=== PATIENT | male | born 1945 | race Caucasian/White ===

== ENCOUNTER 2017-11-04 09:00 | Inpatient (IN) | payer OTHER, MEDICARE ==
[~2017-11-04] VITALS: Ht 180.3 cm; Wt 105.0 kg
[2017-11-06] MEDS ORDERED: SITA50 PO (08:13)
[2017-11-06] MEDS ORDERED: GLIP5TAB8 PO (08:13)
[2017-11-06] MEDS ORDERED: ASPI-516 CHEW (08:13)
[2017-11-06] MEDS ORDERED: AMLO10TA2 PO (08:13)
[2017-11-06] MEDS ORDERED: ATOR40TA16 PO (08:13)
[2017-11-06] MEDS ORDERED: LISI-515 PO (08:13)
[2017-11-06] MEDS ORDERED: METF1000 PO (11:20)
[2017-12-16] MEDS ORDERED: VANCOMYCIN 1 GM/200 ML INJ 200 ML IV ONE (10:24)
[2017-12-16] MEDS ORDERED: ceFAZolin 2 GM PREMIX 50 ML IV SCH (10:45)
[2017-12-16] MEDS ORDERED: CHLORHEXIDINE GLUCONATE 2 % 1 PACK (2 CLOTHS) TOPICAL PRN (10:45)
[2017-12-16] MEDS ORDERED: METOPROLOL TARTRATE 25 MG TAB PO PRN (10:45)
[2017-12-16] MEDS ORDERED: LACTATED RINGER'S 1000 ML IV PRN (10:45)
[2017-12-16] MEDS ORDERED: SODIUM CHLORID 0.9% 500 ML IV PRN (10:45)
[2017-12-16] MEDS ORDERED: POVIDONE IODINE 5% (ANTISEPSIS KIT) 4 APPLICATIONS EACH NARE PRN (10:45)
[2017-12-16] MEDS ORDERED: EXPAREL PERI-ARTICULAR INJECTION (TOTAL VOL. 60 ML) P-ARTICULR SCH ×2 (10:45)
[2017-12-16] MEDS ORDERED: CHLORHEXIDINE GLUCONATE 4% SOLN 120 ML BTL TOPICAL SCH (10:45)
[2017-12-16] MEDS ORDERED: SODIUM CHLORIDE 0.9% IV SCH (11:00)
[2017-12-16] MEDS ORDERED: TRANEXAMIC ACID IV SCH (11:00)
[2017-12-16] MEDS ORDERED: VANCOMYCIN 1 GM/200 ML PREMIX ON-CALL IV SCH (11:00)
[2017-12-16] MEDS ORDERED: ACETAMINOPHEN 1000 MG/100 ML 100 ML IV ONE (11:53)
[2017-12-16] MEDS ORDERED: KETAMINE HCL 50 MG/5 ML SYRINGE ONE (11:53)
[2017-12-16] MEDS ORDERED: LIDOCAINE HCL 1% PF 5 ML SYRINGE OTHER ONE (12:00)
[2017-12-16] MEDS ORDERED: LACTATED RINGER'S 1000 ML INJ 1,000 ML IV ONE (12:00)
[2017-12-16] MEDS ORDERED: ROCURONIUM INJ 50 MG/5 ML SYRINGE IV PUSH ONE (12:00)
[2017-12-16] MEDS ORDERED: ePHEDrine/NS 25 MG/5 ML SYRINGE IV ONE (12:00)
[2017-12-16] MEDS ORDERED: DEXAMETHASONE SOD PHOS 4 MG/ML VIAL IV ONE (12:00)
[2017-12-16] MEDS ORDERED: NEOSTIGMINE 5 MG/5 ML SYRINGE IV PUSH ONE (12:00)
[2017-12-16] MEDS ORDERED: LABETALOL HCL 100 MG/20 ML VIAL IV ONE (12:00)
[2017-12-16] MEDS ORDERED: ONDANSETRON HCL 4 MG/2 ML VIAL IV ONE (12:00)
[2017-12-16] MEDS ORDERED: ceFAZolin INJ 1,000 MG VIAL IV ONE (12:00)
[2017-12-16] MEDS ORDERED: PROPOFOL 200 MG/20 ML AMP IV ONE (12:00)
[2017-12-16] MEDS ORDERED: GLYCOPYRROLATE 1 MG/5 ML SYRINGE IV PUSH ONE (12:00)
[2017-12-16] MEDS ORDERED: GENTAMICIN SULFATE 80 MG/2 ML VIAL ONE (12:22)
[2017-12-16] MEDS ORDERED: BUPIVACAINE/EPINEPHRINE 0.5% PF 10 ML VIAL ONE (12:23)
[2017-12-16] MEDS ORDERED: diphenhydrAMINE HCL 50 MG/ML VIAL ONE (13:24)
--- NOTE | 2017-12-16 15:25 | PD.OP ---
cc: Carmine Hancock MD Operative Report Date of Surgery: Dec 16, 2017 Preoperative Diagnosis: Osteoarthritis left hip Postoperative Diagnosis: Same Procedure: Left total hip replacement arthroplasty, direct anterior exposure Anesthesia: General Surgeon: Carmine Hancock Sales Product Specialist(s): TYLER Rowland Operation and Findings: EBL: 400 cc INDICATION: This patient presents with significant hip pain related to osteoarthritis of the left hip. Despite extensive conservative care this patient continues to be painful and now presents for surgical treatment. NOTE: Britney Rowland PA-C was present for the entire surgical procedure as my first leveler. In my medical opinion her skill and care was necessary for the proper management of this patient. COMPONENTS: COMPANY: [employer] CUP: [place], 56, 100 series, gription surface LINER: Altrx 36, neutral STEM: [place]ail, size 18, high offset, hydroxyapatite-coated HEAD: Metal, 36 mm, 1.5 neck length, /14 taper PROCEDURE: This patient was brought to the operating room and anesthetized in the supine position and positioned on the fracture table with both legs held extended. The left hip and leg was scrubbed with alcohol followed by Hibiclens followed by ChloraPrep and draped sterilely. Antibiotics were given within routine time window and a timeout was done. A 4 inch incision was made starting 2 cm distal and 2 cm lateral to the anterior superior iliac spine. The fascia nessa was opened longitudinally. The interval between the fascia nessa and the rectus was opened down to the capsule of the hip joint. Retractors were positioned allowing good visualization of the capsule. This was opened longitudinally and flaps were created. Stay sutures were utilized. Exposure was excellent. The neck was cut at the proper location using fluoroscopy as a guide. The head was removed. Deep retractors were positioned allowing good visualization of the acetabulum. Acetabulum was deepened down to the floor starting with a proper size reamer and reaming up to 55mm. A trial was utilized. Fluoroscopy was used to check position and confirmed satisfactory alignment. The rim was reamed with a 56 mm reamer and the final cup was positioned in approximately 20 of anteversion and 40-45 of abduction. Position was satisfactory. A single hole eliminator was positioned followed by the final liner. The lifting hook was utilized. The leg was dropped to the floor, maximally externally rotated and brought across the midline. Retractors were positioned. A box osteotome was utilized followed by progressive broaching to the proper stem size. Trial reduction showed excellent alignment and fit. With 60 of external rotation the leg was dropped to the floor without evidence of anterior subluxation. The wound was irrigated. The final stem was inserted and was found to be very stable. The final reduction using the final head. Stability was as previously noted. Intraoperative x-rays were taken. The wound was irrigated copiously. Hemostasis was controlled. Local anesthesia was utilized. The capsule was repaired with #2 Tycron sutures. The fascia nessa was repaired with running 0 PDS on a loop. Subcutaneous tissue was approximated with 2-0 Vicryl and skin with running intradermal 3-0 Vicryl followed by Steri-Strips. A sterile dressing was applied. The patient was awakened and taken to the recovery room in satisfactory condition. FINDINGS: There was severe osteoarthritis of the left hip. There were circumferential osteophytes removed with an osteotome and Diego. The final solution was excellent. There was no complication that was appreciated Carmine Hancock MD Dec 16, 2017 15:25
[2017-12-16] MEDS ORDERED: MORPHINE SULFATE 8 MG/ML INJ IM PRN (15:30)
[2017-12-16] MEDS ORDERED: diphenhydrAMINE HCL 25 MG CAP PO PRN (15:30)
[2017-12-16] MEDS ORDERED: ACETAMINOPHEN/HYDROcodone 325 MG/10 MG TAB PO PRN (15:30)
[2017-12-16] MEDS ORDERED: HYDR-3583 PO (15:30)
[2017-12-16] MEDS ORDERED: ASPI325T33 PO (15:30)
[2017-12-16] MEDS ORDERED: ASPIRIN 81 MG CHEW TAB CHEW ONE (15:30)
[2017-12-16] MEDS ORDERED: Post-op Orders (for Pharmacy) XX ONE (15:30)
--- NOTE | 2017-12-16 15:31 | HHI.FF ---
Face to Face Verification Diagnosis: (1) Primary osteoarthritis of left hip Physical Therapy Gait training Hip: Total hip, Protocol: Left Left LE Weight Bearing: WB as tolerated Occupational Therapy Right UE Weight Bearing: WB as tolerated Nursing RN: 3 days/week x 2 weeks Nursing: Other Dressing Changes: Do not change dressing I have seen patient Ameya Zavaleta on 12/16/17. My clinical findings support the need for the requested home health care services because: Ltd mobility - disease progression High risk of falls I certify that my clinical findings support that this patient is homebound because: Unsteady gait/balance Carmine Hancock MD Dec 16, 2017 15:31
[2017-12-16] MEDS ORDERED: ONDANSETRON ODT 4 MG TAB PO PRN (15:45)
[2017-12-16] MEDS ORDERED: DO NOT ADM ANY ANTICOAGULANT DRUGS PRN (15:51)
[2017-12-16] MEDS ORDERED: *morphine SULFATE 4 MG/ML PERIprocedure ONLY ONE (16:01)
[2017-12-16] MEDS ORDERED: MIDAZOLAM HCL 2 MG/2 ML VIAL ONE (16:03)
[2017-12-16] MEDS: LACTATED RINGER'S 1000 ML INJ 1,000 ML IV SCH (16:10)
[2017-12-16] MEDS: metFORMIN HCL 500 MG TAB PO SCH (17:46)
[2017-12-16] MEDS: ACETAMINOPHEN/HYDROcodone 325 MG/10 MG TAB PO PRN (17:46)
[2017-12-16 17:53] VITALS: BP 171/77; PULSE 80; RESP 18; TEMP 98.2; O2SAT 95
[2017-12-16 20:51] VITALS: BP 163/74; PULSE 79; RESP 17; TEMP 97.8; O2SAT 94
[2017-12-16] MEDS: MAGNESIUM HYDROXIDE SUSP 30 ML CUP PO SCH (20:58)
[2017-12-16] MEDS ORDERED: ATORVASTATIN 40 MG TAB PO SCH (21:00)
[2017-12-16] MEDS ORDERED: SENNOSIDES 8.6 MG TAB PO SCH (21:00)
--- NOTE | 2017-12-16 21:15 | RADRPT ---
EXAM DATE: 12/16/2017 9:12 PM EDT AGE/SEX: 72 years / Male INDICATIONS: Open reduction internal fixation of the left hip. CLINICAL DATA: This is the patient's initial encounter. Patient reports that signs and symptoms have been present for 1 day and indicates a pain score of Nonresponsive. MEDICAL/SURGICAL HISTORY: Non-responsive. Non-responsive. COMPARISON: No prior exams available for comparison. FINDINGS: The patient is post left hip arthroplasty. The orthopedic hardware is in excellent position. Alignmen t is good. CONCLUSION: The orthopedic hardware is in excellent position. Electronically signed by: Andrey Conner MD 12/16/2017 9:13 PM EDT
[2017-12-17 00:45] VITALS: BP 135/59; PULSE 80; RESP 17; TEMP 97.7; O2SAT 94
[2017-12-17 03:53] VITALS: BP 154/71; PULSE 80; RESP 18; TEMP 98.3; O2SAT 95
[2017-12-17] MEDS: ACETAMINOPHEN/HYDROcodone 325 MG/10 MG TAB PO PRN (03:54)
[2017-12-17] MEDS ORDERED: ASPIRIN EC 81 MG TABEC PO SCH (04:00)
[2017-12-17] MEDS: LACTATED RINGER'S 1000 ML INJ 1,000 ML IV SCH (04:16)
[2017-12-17 05:22] LABS: HEMATOCRIT 39.2 % (39.0-51.0); HEMOGLOBIN 13.1 GM/DL (13.0-17.0)
[2017-12-17 08:00] VITALS: BP 123/58; PULSE 70; RESP 18; TEMP 98.2; O2SAT 96
[2017-12-17] MEDS: MAGNESIUM HYDROXIDE SUSP 30 ML CUP PO SCH (09:00)
[2017-12-17] MEDS ORDERED: glipiZIDE 5 MG TAB PO SCH (09:00)
[2017-12-17] MEDS ORDERED: LISINOPRIL 20 MG TAB PO SCH (09:00)
[2017-12-17] MEDS: metFORMIN HCL 500 MG TAB PO SCH (09:17)
[2017-12-17 12:00] VITALS: BP 130/61; PULSE 64; RESP 18; TEMP 97.8; O2SAT 96
--- NOTE | 2017-12-17 13:09 | HHI.DCPOC ---
Discharge Care Plan Diagnosis: (1) Primary osteoarthritis of left hip Your Health Problems Are: Difficulty with ADL Incision/Drains Swelling Goals to Promote Your Health * To prevent worsening of your condition and complications * To maintain your health at the optimal level Directions to Meet Your Goals Take your medications as prescribed Follow your dietary instruction Follow activity as directed Keep your appointments as scheduled Take your immunizations and boosters as scheduled If your symptoms worsen call your PCP, if no PCP go to Urgent Care Center or Emergency Room Smoking is Dangerous to Your Health. Avoid second hand smoke Call the 24-hour hour crisis hotline for domestic abuse at Alissa Lomas Dec 17, 2017 13:09
[2017-12-17] MEDS ORDERED: WALKER WHEELS/F1 MIS (13:10)
--- NOTE | 2017-12-17 13:10 | HHI.DS ---
Discharge Summary Admission Date Dec 16, 2017 at 09:45 Discharge Date: Dec 17, 2017 Admitting Diagnosis see below Diagnosis: (1) Primary osteoarthritis of left hip Diagnosis: Principal ICD Codes: M16.12 - Unilateral primary osteoarthritis, left hip Procedures Left total hip arthroplasty, direct anterior approach Brief History This is a 72 year old male patient CBC/BMP: 12/17/17 0505 Significant Findings Laboratory Tests Test 12/17/17 05:05 Hospital Course [place] 10mg. ASA 81mg. pod#1 HHC. Pt Condition on Discharge: Stable Discharge Disposition: Disch w/ Home Health Serv Discharge Instructions Diet Instructions: Diabetic Diet Activities You Can Perform: Weight Bearing as Sujit New Medications: Aspirin DR (Aspirin EC) 325 Mg Tabdr 81 MG PO BID for Prevent Blood Clot, #60 TAB Hydrocodone/Acetaminophen (Hydrocodone-Acetamin 10-325 mg) 10 Mg-325 Mg Tablet 1 TAB PO Q4H PRN for Pain, #42 TAB Continued Medications: Amlodipine (Amlodipine) 10 Mg Tab 10 MG PO DAILY for Blood Pressure Management, #30 TAB 0 Refills Aspirin (Aspirin) 81 Mg Chew 81 MG CHEW DAILY, TAB 0 Refills Atorvastatin (Atorvastatin) 40 Mg Tab 40 MG PO HS for Cholesterol Management, #30 TAB 0 Refills Glipizide (Glipizide) 5 Mg Tab 5 MG PO DAILY for Blood Sugar Management, #30 TAB 0 Refills Take 30 minutes before a meal Lisinopril (Lisinopril) 20 Mg Tab 20 MG PO DAILY, #30 TAB 0 Refills Metformin (Metformin) 1,000 Mg Tab 1000 MG PO BIDPC for Blood Sugar Management, #60 TAB 0 Refills Do not restart until 11/08 Sitagliptin (Januvia) 50 Mg Tab 50 MG PO DAILY for Blood Sugar Management, #30 TAB 0 Refills Alissa Lomas Dec 17, 2017 13:10
[2017-12-17] MEDS ORDERED: COMMODE 3-IN-11 MIS (13:11)
--- NOTE | 2017-12-17 13:14 | PD.ORT.PN ---
Subjective Subjective Remarks He notes left hip and anterior thigh pain but no radiating leg pain past the knee. No concerns over CP, SOB or abd pain. No lightheadedness. Appetite is ok. Urinating well. Prefers to go home today. Objective Vitals Vital Signs Date Time Temp Pulse Resp B/P (MAP) Pulse Ox O2 Delivery O2 Flow Rate FiO2 12/17/17 08:00 98.2 70 18 123/58 (79) 96 12/17/17 07:34 Room Air 12/17/17 03:53 98.3 80 18 154/71 (98) 95 12/17/17 00:45 97.7 80 17 135/59 (84) 94 12/16/17 20:51 97.8 79 17 163/74 (103) 94 12/16/17 20:45 Room Air 12/16/17 17:53 98.2 80 18 171/77 (108) 95 12/16/17 17:15 73 12 147/66 (93) 95 Nasal Cannula 2 12/16/17 16:45 98.4 72 12 139/58 (85) Nasal Cannula 3 12/16/17 16:30 73 15 148/67 (94) 96 Nasal Cannula 3 12/16/17 16:15 74 14 144/62 (89) 95 Nasal Cannula 3 12/16/17 16:00 71 11 142/67 (92) 95 Nasal Cannula 3 12/16/17 15:51 98.5 77 12 141/67 (91) 93 Nasal Cannula 3 I/O 12/16/17 12/16/17 12/16/17 12/17/17 12/17/17 12/17/17 07:00 15:00 23:00 07:00 15:00 23:00 Intake Total 1920.53 ml 730 ml 0 ml Output Total 600 ml 1500 ml Balance 1320.53 ml -770 ml 0 ml Intake IV Total 320.53 ml 730 ml 0 ml Other 1600 ml Output Urine Total 200 ml 1500 ml Estimated Blood Loss 400 ml Result Diagram: 12/17/17 0505 Procedures Left total hip arthroplasty, direct anterior approach Objective Remarks Sitting up in chair With NAD VSS LLE Hip dressing c/d/i, mild SS drainage, mild swelling, no erythema +motor at, +sens, +nvi neg homans Assessment & Plan Ortho Post Op Day #: 1 Problem List: (1) Primary osteoarthritis of left hip ICD Codes: M16.12 - Unilateral primary osteoarthritis, left hip Assessment and Plan pod#1 s/p L SHOSHANA, anterior Doing well. Pain controlled. Ortho stable. Labs stable. Vitals stable. Ok for d/c home w hhc today. PT - WBAT Left LE. Anterior shoshana precautions. Hold dressing changes unless saturated. ASA 81mg bid for dvt prophylaxis. Ice to hip BID for 7 days postop. F/U in 2 weeks as scheduled. DME written. Alissa Lomas Dec 17, 2017 13:14
[2017-12-17 16:00] VITALS: BP 119/67; PULSE 80; RESP 18; TEMP 97.2; O2SAT 97
== END 2017-12-17 15:51 | disposition home health service (06) | DRG 470 ==
LOC: HSDI 12-16 09:45 → N06A 12-16 17:38
PROVIDERS: ADMIT Orthopaedic Surgery Orthopaedic Surgery of the Spine; ATTEND Orthopaedic Surgery Orthopaedic Surgery of the Spine
PROC: 0SRB02A Replacement of Left Hip Joint with Metal on Polyethylene Synthetic Substitute, Uncemented, Open Approach (ICD-10-PCS; principal; 2017-12-16 12:45)
DX: M16.12 Unilateral primary osteoarthritis, left hip (principal); E11.51 Type 2 diabetes mellitus with diabetic peripheral angiopathy without gangrene; E66.9 Obesity, unspecified; I25.10 Atherosclerotic heart disease of native coronary artery without angina pectoris; I10 Essential (primary) hypertension; E78.5 Hyperlipidemia, unspecified; Z79.82 Long term (current) use of aspirin; Z79.84 Long term (current) use of oral hypoglycemic drugs; Z68.32 Body mass index [BMI] 32.0-32.9, adult; Z72.0 Tobacco use
CPT/HCPCS: 73502; 76000; 85014; 85018; 86850; 86900; 86901; 86920; 94150; C1776; J0131; J0690; J1100; J1200; J1580; J2250; J2270; J2405; J2710; J3010; J3370; J7120

== ENCOUNTER 2017-11-06 07:26 | Day surgery (SDC) | payer OTHER ==
[~2017-11-06] VITALS: Ht 180.3 cm; Wt 105.6 kg
[~2017-11-06 07:26] MED LIST: ASPI325T PO; ATOR20TA42 PO; GLUCTAB PO; LISI-363 PO; PERC5TAB12 PO; TAB-TAB PO; TAMS0.4C67 PO; TOPR50TA PO; VITA10002 PO; VITA20002 PO
[2017-11-06] MEDS ORDERED: IOHEXOL 350 MG/ML 100 ML BTL (for Cath Lab) OTHER ONE (07:27)
[2017-11-06] MEDS ORDERED: NS 1000P @30 MLS/HR (KVO) IV SCH (07:45)
[2017-11-06] MEDS ORDERED: ASPI-516 CHEW (08:13)
[2017-11-06] MEDS ORDERED: GLIP5TAB8 PO (08:13)
[2017-11-06] MEDS ORDERED: ATOR40TA16 PO (08:13)
[2017-11-06] MEDS ORDERED: SITA50 PO (08:13)
[2017-11-06] MEDS ORDERED: AMLO10TA2 PO (08:13)
[2017-11-06] MEDS ORDERED: METF1000 PO ×2 (08:13→11:20)
[2017-11-06] MEDS ORDERED: LISI-515 PO (08:13)
[2017-11-06 08:14] VITALS: BP 155/76; PULSE 66; RESP 18; O2SAT 98
[2017-11-06 08:20] LABS: AUTOMATED NEUTROPHIL # 6.3 TH/MM3 (1.8-7.7); BASOPHIL # 0.1 TH/MM3 (0-0.2); BASOPHIL % 0.7 % (0.0-2.0); EOSINOPHIL # 0.2 TH/MM3 (0-0.4); EOSINOPHIL % 1.9 % (0.0-4.0); HEMATOCRIT 44.4 % (39.0-51.0); HEMOGLOBIN 15.1 GM/DL (13.0-17.0); LYMPH % 17.8 % (9.0-44.0); LYMPHOCYTE # 1.6 TH/MM3 (1.0-4.8); MEAN CELL VOLUME 92.6 FL (80.0-100.0); MEAN CORPUSCULAR HEMOGLOBIN 31.4 PG (27.0-34.0); MEAN CORPUSCULAR HGB CONC 33.9 % (32.0-36.0); MEAN PLATELET VOLUME 8.2 FL (7.0-11.0); MONO % 10.2 % (0.0-8.0); MONOCYTE # 0.9 TH/MM3 (0-0.9); NEUT % 69.4 % (16.0-70.0); PLATELET COUNT 277 TH/MM3 (150-450); RED BLOOD COUNT 4.79 MIL/MM3 (4.50-5.90); WHITE BLOOD COUNT 9.1 TH/MM3 (4.0-11.0)
[2017-11-06 08:31] LABS: PROTHROMBIN TIME - PATIENT 10.5 SEC (9.8-11.6)
[2017-11-06 08:39] LABS: CALCIUM 9.3 MG/DL (8.5-10.1); CREATININE 0.83 MG/DL (0.60-1.30)
[2017-11-06] MEDS ORDERED: HEPARIN-NS/PF FLUSH BAG 2,000 ML IV FLUSH ONE (10:18)
[2017-11-06] MEDS ORDERED: MIDAZOLAM HCL 2 MG/2 ML VIAL ONE (10:21)
--- NOTE | 2017-11-06 11:16 | CATHPROC ---
[facility] HIS Report Study Information Study Number Admission Scheduled Start Study Start [id number] Nov 06 2017 7:26AM 11/06/2017 Nov 06 2017 10:16AM [place] Service Cardiac Catheterization Admit Source Facility Department Other [facility] - Supervisor Propellant Charge Loading Physician and Clinical Staff Initial Devon Garcia Curtain Roller Assembler Swapnil Alfaro RN Curtain Roller Assembler Kristen Curiel RN Recorder Charity Boyle,RT(R) Scrub Jackson Merritt RCIS(BS) Procedures Performed Procedure Location (Site) Vessel Name Coronary Angiograms LCA Left Coronary Coronary Angiograms RCA Right Coronary Coronary Angiograms LOPEZ-LAD Left Coronary Coronary Angiograms Gft. Stump 1 SVG Graft Coronary Angiograms SVG-RAMUS Left Coronary L Heart Cath Wire insertion Fem Art (left) Femoral Art Wire insertion Fem Art (right) Femoral Art Equipment Time Podiatry Assistant Description Size Mfg Part Number Used/Scraped TRANSDUCER, TRUWAVE [id number] 10:18 GUZMAN TAM * Used W/STOCKCOCK *[id number] INTRODUCER SET, 10:18 [employer] FR 5 [id number] *[id number] Used MICROPUNCTURE STIFF WIRE, GUIDE AMPLATZ STIFF [id number] 10:42 COOK/PACER 3MMJ Used 180CM *[id number] *[id number] *[id number] 10:18 [employer] INDUSTRIES PACK, CCL CUSTOM * Used *[id number] 10:18 [employer] MEDICAL WIRE, 3MMJ .035 180CM 180CM Used *[id number] 10:18 NAMIC MANIFOLD, 4 PORT * Used *[id number] 10:18 NYCOMED OMNIPAQUE, 350 MG, 150ML 150ML [id number] Used [id number] 10:18 MCCARTY MEDICAL BLANKET,WARM AIR CCL * Used *[id number] 10:18 TERUMO MEDICAL SHEATH, FR5 TERUMO (10CM) FR 5 Used *[id number] Equipment Model, Serial, Lot Number and Expiration Data Description Model Number Serial Number Lot Number Expiration Date WIRE, GUIDE AMPLATZ STIFF [id number] 06-18-2022 180CM History: Current Medications Medication Dosage/Unit Route Frequency Last Date/Time Taken LISINOPRIL Statins (any) ASA Glucophage History: Allergies Allergy Reaction No Known Allergies History: Risk Factors Family History of Hypertension Dyslipidemia Previous MA Previous Heart Failure Premature CAD Yes Yes No No No Prior Valve Prior PCI Prior CABG Prior CABGDate Surgery No No Yes 06/23/2001 Cerebrovascular Peripheral Artery Chronic Lung On Dialysis Diabetes Diabetes Therapy Disease Disease Disease No No Yes No Yes Oral History: Stress Tests Stress or Imaging Studies Performed Yes Standard Exercise Stress Test No Stress Echo No Stress Test SPECT Stress Test SPECT Result Stress Test SPECT Ischemia Risk/Extent Yes Positive Intermediate Stress Test CMR No Cardiac CTA Coronary Calcium Score No No History: Other Current Smoker Packs a Day Years Used Pack Years Yes 1 60 60 Labs Hgb (g/dl) Hct (%) WBC (l/cumm) Platelets (thousands) 11.60-17.00 35.00-51.00 4.00-11.00 150.00-450.00 15.1 44.4 9.1 277 Glucose (mg/dl) BUN (mg/dl) Creatinine (mg/dl) BUN:Creatinine (1:x) 74.00-106.00 7.00-18.00 0.50-1.30 10.00-20.00 182 12 0.8 15 Na (meq/l) K (meq/l) 136.00-145.00 3.50-5.10 140 4 INR (PTT:PT) 0.90-1.10 1 CPK-MB (ng/ML) 0.50-3.60 Not Drawn Medication Medication Total Dose (Bolus/Oral) Medication Total Dosage/Unit 1% XYLOCAINE 20 mL FENTANYL 25 mcg VERSED 0.5 mg Medications (Bolus/Oral) Medication Time Given Dosage/Unit Administered By Reason VERSED 11/06/2017 10:33:37 AM 0.5 mg Kristen Curiel 0.5 mg VERSED given in lab by Kristen Curiel RN in Left Wrist via Peripheral IV. Ordered by Devon Vaughn FENTANYL 11/06/2017 10:34:46 AM 25 mcg Kristen Curiel 25 mcg FENTANYL given in lab by Kristen Curiel RN in Left Wrist via Peripheral IV. Ordered by Devon Flores 1% XYLOCAINE 11/06/2017 10:36:44 AM 20 mL Devon Vaughn 20 mL 1% XYLOCAINE given in lab by Devon Vaughn in Left Groin via Subcutaneous. Medication (Drip) Medication Time Given Dosage/Unit Concentration/Unit Diluent (ml) Solution IV Solutions 11/06/2017 10:16:35 AM 50 mL (IV) NaCl .9 IV Solutions given in lab by Swapnil Alfaro RN in Left Wrist via Peripheral IV. Pump/Drip Flow using N aCl .9. Initial Case Assessment Cardiovascular HR Rhythm NIBP Chest Pain 67 SR 154/81 0 Circulatory - Right Pulses Dorsalis Pedis Femoral 1 1 Scale (0,1,2,3,4,d) Circulatory - Left Pulses Dorsalis Pedis Femoral 1 1 Scale (0,1,2,3,4,d) Neurological State Oriented to time-place- Alert Moves all extremities person Respiration - General Respiration Rate SpO2 (%) (B/min) 17 98 Chronological Log Time Study Chronological Log 10:13:09 Patient arrived via Bed. 10:16:13 Patient Name, D.O.B, / Armband Verified By R.N. 10:16:13 Consent signed by the physician and the patient and verified by the Supervisor Propellant Charge Loading staff. 10:16:14 Pre-op and post- op instructions given; patient acknowledges understanding of instruction s. 10:16:21 Verbal Stimulation=2 Physical Stimulation=2 Airway=2 Respiration=2 TOTAL=8. (0=absent, 1= limited, 2=present) 10:16:25 Presedation assessment performed by Supervisor Propellant Charge Loading RN. 10:16:27 Patient has been NPO for More than 6Hrs. 10:16:29 Immediate Presedation assesment performed by physician. 10:16:30 Skin Breakdown- none per pt 10:16:31 Patient Warmer Placed on the Table. 10:16:33 Stacy Prominences Protected 10:16:34 A # 20 IV was noted in the Wrist (right). Grade = 0 10:16:35 IV Solutions given in lab by Swapnil Alfaro RN in Left Wrist via Peripheral IV. Pump/Drip Fl ow using NaCl .9. 10:16:36 History and physical on the chart or being dictated. Assessment: Initial Case, HR=67 BPM, Rhythm=SR, FYKO=950/81 mmhg, Chest Pain=0 Right Pulses: Flaquito Ped=1, Femoral=1 10:16:37 Left Pulses: Flaquito Ped=1, Femoral=1 Neurological: State=Alert, Ox3, CONKLIN Respiration: Resp=17 B/min, SpO2=98 % Vitals capture started with the following parameters, Patient=Adult, Interval=5 min, Initial Pr zbrflw=725 mmHg, 10:17:47 Deflation Rate=5 mmHg, Cuff placed on Right Arm 10:19:06 HR=67 bpm, WNKL=378/89 mmhg, SpO2=97.0 %, Resp=17 B/min 10:23:35 HR=67 bpm, EFHG=994/81 mmhg, SpO2=99.0 %, Resp=19 B/min 10:24:00 Reference ECG taken 10:25:15 Bilateral groins prepped with 2% chlorhexidine, and draped after a 3 minute waiting time. 10:27:52 MD arrived. 10:28:36 HR=68 bpm, FPXM=496/80 mmhg, SpO2=99.0 %, Resp=12 B/min 10:31:09 Pressure channel 1 zeroed. Time Out. Correct patient, correct procedure, correct physician, power injector not loaded with contrast with surgical 10:33:23 team present. Time Out Concurred by MD and individual staff in procedure. 10:33:31 HR=66 bpm, OVTT=734/84 mmhg, SpO2=97.0 %, Resp=18 B/min 10:33:37 0.5 mg VERSED given in lab by Kristen Curiel RN in Left Wrist via Peripheral IV. Ordered b y Devon Vaughn 10:34:25 Case Start 10:34:46 25 mcg FENTANYL given in lab by Kristen Curiel RN in Left Wrist via Peripheral IV. Ordered by Devon Vaughn 10:36:44 20 mL 1% XYLOCAINE given in lab by Devon Vaughn in Left Groin via Subcutaneous. 10:38:11 Access site was Left Femoral Artery with micropunture. 10:38:20 A WIRE, 3MMJ .035 180CM 180CM was inserted via Fem Art (right). 10:38:34 HR=71 bpm, OQZJ=378/83 mmhg, SpO2=95.0 %, Resp=17 B/min 10:38:37 A SHEATH, FR5 TERUMO (10CM) FR 5 was advanced into the Fem Art (left) using the Mayutafaraou s technique. 10:40:00 Wire removed 10:41:45 A WIRE, GUIDE AMPLATZ STIFF 180CM 3MMJ was inserted via Fem Art (left). 10:43:31 HR=73 bpm, HFDW=290/92 mmhg, SpO2=96.0 %, Resp=17 B/min 10:43:46 Wire removed 10:44:40 An injection in the Fem Art (left) was made through the SHEATH, FR5 TERUMO (10CM) FR 5. 10:45:53 A WIRE, 3MMJ .035 180CM 180CM was inserted via Fem Art (left). A JR 4.0 INFINITI CATHETER FR 5 was advanced over a wire. OMNIPAQUE, 350 MG, 150ML 150ML was us ed for 10:46:01 injections. Recorded Pressure: LV, HR=68, Condition=Condition 1 10:46:14 (Left Ventricle) LV 159/3/15 10:46:30 The RCA was injected and visualized at various angles. OMNIPAQUE, 350 MG, 150ML 150ML used . Recorded Pressure: LV, Ao, HR=68, Condition=Condition 1 10:46:30 (Left Ventricle) LV 158/2/17, (Aorta) Ao 155/63/99 Recorded Pressure: Ao, HR=70, Condition=Condition 1 10:47:52 (Aorta) Ao 162/73/108 10:48:01 The SVG-RAMUS was injected and visualized at various angles. OMNIPAQUE, 350 MG, 150ML 150M L used. 10:48:34 HR=72 bpm, XGCL=541/84 mmhg, SpO2=95.0 %, Resp=15 B/min 10:48:47 The Gft. Stump 1 was injected and visualized at various angles. OMNIPAQUE, 350 MG, 150ML 1 50ML used. SVG-OM 10:49:58 A WIRE, 3MMJ .035 180CM 180CM was inserted via Fem Art (left). 10:51:00 Wire removed 10:51:43 The LOPEZ-LAD was injected and visualized at various angles. OMNIPAQUE, 350 MG, 150ML 150ML used. After removing the current catheter a JL 4.0 INFINITI CATHETER FR 5 was advanced over a WIRE, 3MMJ .035 180CM 10:52:49 180CM. 10:53:35 HR=73 bpm, FJHD=129/79 mmhg, SpO2=94.0 %, Resp=20 B/min 10:54:25 The LCA was injected and visualized at various angles. OMNIPAQUE, 350 MG, 150ML 150ML use d. 10:57:10 Catheter was removed 10:57:37 Case End 10:58:34 HR=68 bpm, GZTC=748/89 mmhg, SpO2=97.0 %, Resp=20 B/min 11:01:48 Sheath removed; pressure applied to access site. 11:01:54 No case complications noted. 11::57 Cine recording checked. 11::58 Holding Area notified 11:02:06 Bedside Report will be given. 11:02:09 A Left Heart Cath was performed. 11:03:37 HR=77 bpm, WIIB=035/90 mmhg, SpO2=96.0 %, Resp=26 B/min 11:08:42 HR=66 bpm, ONDH=358/82 mmhg, SpO2=96.0 %, Resp=13 B/min 11:12:24 Vitals capture stopped. 11:15:13 Sterile dressing applied to site 11:15:16 Patient moved to white hospitaler End Study - Contrast Media Used In Study Contrast Total Opened (mL) Total Used (mL) Total Wasted (mL) Omnipaque 60 60 0 End Study - Maximum Contrast Load Max Contrast Load (mL) 659.9 End Study - Radiation Exposure Fluoro Time (minutes) 4.3 End Study - Sheaths Sheaths Pulled By Sheath Hold Time (min) Jackson Merritt 20 End Study - Patient Disposition Complications Transferred To Interventional Outcome No Outpatient Bed No attempt made
--- NOTE | 2017-11-06 11:58 | MA ---
cc: Devon Vaughn DO DATE: 11/06/2017 PROCEDURES: Left heart catheterization, coronary angiogram, bypass angiogram, moderate sedation, 24 minutes. PREOPERATIVE DIAGNOSES: Preoperative cardiovascular evaluation, abnormal stress test. POSTOPERATIVE DIAGNOSIS: Severe [place] coronary artery disease, coronary artery bypass grafting x 5 (2 out of 5 patent). MEDICATIONS: Versed 0.5 mg, fentanyl 25 mcg. CONTRAST: 60 mL. FLUOROSCOPY TIME: 4.3 minutes. ANESTHESIA: Moderate sedation, 24 minutes. FRAILTY SCORE: 3. ESTIMATED BLOOD LOSS: 10 mL. PROCEDURAL SUMMARY: Ameya Zavaleta is a pleasant 72-year-old male who sees my partner, Dr. Glasgow in the office and underwent stress testing for possible preoperative evaluation for possible hip surgery. As this was abnormal, he was recommended consideration of cardiac catheterization. The risks, benefits and alternatives were explained to him and he consented as such. He was brought to the lab and prepped in the usual sterile fashion. The left femoral artery was accessed using a modified Seldinger technique and placement of a 5-Danish sheath. This was easily aspirated and flushed. A JR4 was advanced over a J-wire to the ascending aorta and across the aortic valve for measurement of left ventricular pressure. This was pulled back across the aortic valve showing no significant gradient of aortic stenosis. JR4 was used for selective angiography of the [place] RCA, saphenous vein graft to ramus, saphenous vein graft to obtuse marginal, and LOPEZ to LAD. This was exchanged out for a JL4 which was used for selective angiography of the left coronary artery system. The catheter was removed. The sheath was removed and pressure was held for hemostasis. The patient left the laborer gold leaf cardiovascularly stable. FINDINGS: LEFT MAIN: Diffuse 40-50% disease throughout the mid to distal portion. Previously trifurcated into an LAD, ramus and circumflex. LAD: 100% occluded at the ostial portion. RAMUS: Subtotally occluded with possible small vessel coming off the proximal portion before a full occlusion. Ramus, 100% occluded at the proximal portion. LEFT CIRCUMFLEX: 100% occluded at the ostial proximal portion. It does give off an extremely high small obtuse marginal with a recurrent left atrial branch. RCA: 100% occluded in the midportion. LOPEZ to LAD: Patent with no significant disease. It fills antegrade and somewhat retrograde. It also supplies collaterals to the posterolateral or possible obtuse marginal branches. SAPHENOUS VEIN GRAFT TO RAMUS: No significant disease. Overall, the ramus is a large vessel and fills both antegrade with multiple branches, as well as retrograde. It also supplies collaterals to the distal right coronary artery. SAPHENOUS VEIN GRAFT TO OBTUSE MARGIN: Previously open, but now occluded. SAPHENOUS VEIN GRAFT TO SEQUENT PDA/PLB: Known to be occluded from before. LV 17. IMPRESSIONS: 1. Coronary artery disease with a history of coronary artery bypass grafting x 5 (2/5 grafts patent). 2. Preoperative cardiovascular evaluation. 3. Abnormal stress test. RECOMMENDATIONS: 1. Mr. Zavaleta appears to have had a change in his coronary anatomy with occlusion of his saphenous vein graft to obtuse marginal, as well as his [place] left circumflex. At this time, he has no intervenable lesions that will help to decrease his risk preoperatively. 2. His abnormal stress test is most likely ischemia due to collateralization of the distal obtuse marginals and PDA. 3. From a cardiovascular standpoint, he will followup with Dr. Glasgow, but may proceed. 4. He will be discharged home today for followup with Dr. Glasgow for further recommendations for preoperative risk assessment. 5. He will hold Metformin for 48 hours. Thank you for allowing me to see Ameya Zavaleta. If there are any questions, please do not hesitate to call. Devon Vaughn, VGP/DL , 11:15 AM , 11:57 AM
--- NOTE | 2017-11-07 11:48 | EKG ---
Date Performed: 11/06/2017 Time Performed: 08:18:08 PTAGE: 72 years EKG: Possible ectopic atrial rhythm. Possible anterior infarct - age undetermined Inferior T wav e changes are nonspecific Low QRS voltages in precordial leads Abnormal ECG PREVIOUS TRACING : 07/15/2013 13.20 DOCTOR: Giovanni Vargas Interpretating Date/Time 11/07/2017 11:45:24
== END 2017-11-06 16:20 | disposition home or self-care (01) ==
LOC: HDOC 07:26 → HDIC 07:26 → HDOC 16:20
PROVIDERS: ATTEND Nuclear Medicine Nuclear Cardiology
DX: I25.810 Atherosclerosis of coronary artery bypass graft(s) without angina pectoris (principal); I10 Essential (primary) hypertension; I73.9 Peripheral vascular disease, unspecified; E11.9 Type 2 diabetes mellitus without complications; I65.29 Occlusion and stenosis of unspecified carotid artery; Z72.0 Tobacco use; Z79.84 Long term (current) use of oral hypoglycemic drugs; Z79.82 Long term (current) use of aspirin
CPT/HCPCS: 80048; 85025; 85610; 85730; 93005; 93459; 99152; 99153; C1769; C1893; J1644; J2250; J3010; Q9967